=== PATIENT | male | born 1935 | race Caucasian/White ===

== ENCOUNTER 2017-02-02 09:34 | Emergency (ER) | payer OTHER ==
--- NOTE | 2017-02-02 09:40 | EDPHY ---
H & P Time Seen by Provider: 02/02/17 09:39 HPI/ROS: CHIEF COMPLAINT: Shortness of breath or altered mental status HISTORY OF PRESENT ILLNESS: Patient says he feels fine now. He has dementia. EMS as they got toned to his living facility for shortness of breath when they found him he was semi-responsive and drooling at the table. According to the daughter he is transitioning from Flomax to finasteride and currently on both medications, has had previous problems with transient low blood pressure which causes him to be altered. EMS initially had trouble palpating pulses but when they got him some IV fluids and his blood pressure came up his mental status normalized. History and review of systems is however limited by the patient's known dementia. Here he feels fine. REVIEW OF SYSTEMS: Eye: no change in vision ENT: no sore throat Cardiac: no chest pain or syncope Pulmonary: no cough or SOB Abdomen: no vomiting, diarrhea, abdominal pain Musculoskeletal: no back pain or neck pain Skin: no rash Neuro: no headache Constitutional: no fever : no urinary symptoms A comprehensive 10 point review of systems is otherwise negative aside from elements mentioned in the history of present illness. PAST MEDICAL HISTORY: Includes dementia, macular degeneration, enlarged prostate Social history: Daughter and present at 10:00 a.m. General Appearance: Alert and conversant, cooperative. Eyes: No scleral icterus. ENT, Mouth: Normal mucous membranes. No tongue laceration or abrasion. Respiratory: Normal respiratory effort, breath sounds equal, lungs are clear to auscultation. Cardiovascular: Regular rate and rhythm. Gastrointestinal: Abdomen is soft and non tender. Neurological: Alert, fluent speech. Responds appropriately to commands and questions. Normally conversant. Face symmetric, normal movement and sensation in all extremities. Skin: Warm and dry, no rashes. Musculoskeletal: No peripheral edema and no joint swelling. Psychiatric: Not agitated. Emergency Department course/MDM: 1000: discussed with daughter. Patient back to normal mental status. I think the most likely thing is the patient had an episode of transient hypotension leading to altered mental status which now has completely resolved. Family including daughter and state they are comfortable taking him home. Think it is reasonable to not perform any further diagnostics as he is back to baseline. Smoking Status: Former smoker Constitutional: Initial Vital Signs Temperature (C) 36.6 C 02/02/17 09:43 Heart Rate 60 02/02/17 09:43 Respiratory Rate 16 02/02/17 09:43 Blood Pressure 124/73 H 02/02/17 09:43 O2 Sat (%) 97 02/02/17 09:43 O2 Delivery Mode Room Air O2 (L/minute) 2 Allergies/Adverse Reactions: No Known Allergies Allergy (Unverified 11/28/14 10:25) Home Medications: Medication Instructions Recorded Donepezil HCl 02/02/17 Ferrous Sulfate 02/02/17 Preservision Areds Softgel 02/02/17 Proscar 5 MG (*) 02/02/17 Tamsulosin HCl 02/02/17 Vitamin B12 02/02/17 Medical Decision Making - Diagnostics EKG Interpretation: 12-lead EKG interpreted by me; official reading is in trace master. My interpretation is sinus rhythm rate 51 Differential Diagnosis: Differential considered including but not limited to seizure, ischemic stroke, dysrhythmia, metabolic abnormality. - Data Points Laboratory Results: Laboratory Results 02/02/17 09:45 02/02/17 09:45 02/02/17 02/02/17 09:45 09:45 WBC 8.70 10^3/uL 10^3/uL (3.80-9.50) RBC 5.08 10^6/uL 10^6/uL (4.40-6.38) Hgb 16.2 g/dL g/dL (13.7-17.5) Hct 46.5 % % (40.0-51.0) MCV 91.5 fL fL (81.5-99.8) MCH 31.9 pg pg (27.9-34.1) MCHC 34.8 g/dL g/dL (32.4-36.7) RDW 13.0 % % (11.5-15.2) Plt Count 243 10^3/uL 10^3/uL (150-400) MPV 11.5 fL fL (8.7-11.7) Neut % (Auto) 56.8 % % (39.3-74.2) Lymph % (Auto) 31.1 % % (15.0-45.0) Kane % (Auto) 9.8 % % (4.5-13.0) Eos % (Auto) 1.3 % % (0.6-7.6) Baso % (Auto) 0.8 % % (0.3-1.7) Nucleat RBC Rel Count 0.0 % % (0.0-0.2) Absolute Neuts (auto) 4.94 10^3/uL 10^3/uL (1.70-6.50) Absolute Lymphs (auto) 2.71 10^3/uL 10^3/uL (1.00-3.00) Absolute Monos (auto) 0.85 10^3/uL H 10^3/uL (0.30-0.80) Absolute Eos (auto) 0.11 10^3/uL 10^3/uL (0.03-0.40) Absolute Basos (auto) 0.07 10^3/uL 10^3/uL (0.02-0.10) Absolute Nucleated RBC 0.00 10^3/uL 10^3/uL (0-0.01) Immature Gran % 0.2 % % (0.0-1.1) Immature Gran # 0.02 10^3/uL 10^3/uL (0.00-0.10) Sodium 141 mEq/L mEq/L (134-144) Potassium 3.8 mEq/L mEq/L (3.5-5.2) Chloride 104 mEq/L mEq/L (97-110) Carbon Dioxide 22 mEq/l mEq/l (22-31) Anion Gap 15 mEq/L mEq/L (8-16) BUN 16 mg/dL mg/dL (7-23) Creatinine 1.3 mg/dL mg/dL (0.7-1.3) Estimated GFR 53 Glucose 134 mg/dL H mg/dL (70-100) Calcium 9.3 mg/dL mg/dL (8.5-10.4) Medications Given: Discontinued Medications Sodium Chloride (Ns) 500 mls @ 0 mls/hr IV EDNOW ONE; Wide Open PRN Reason: Protocol Stop: 02/02/17 10:48 Last Admin: 02/02/17 11:00 Dose: 500 mls Departure - Departure Disposition: Home, Routine, Self-Care Clinical Impression: Hypotension, resolved Condition: Good Instructions: Hypotension (ED) Additional Instructions: Continue medications as prescribed. Increase oral fluid intake. Referrals: Patient,NotPresent [Unknown] - As per Instructions [facility] ,. [Edm Groups for Call Sched] - As per Instructions
[2017-02-02 09:46] VITALS: RESP 16; TEMP 97.9
[2017-02-02 09:51] LABS: % IMMATURE GRANULYOCYTES 0.2 % (0.0-1.1); ABSOLUTE IMMATURE GRANULOCYTES 0.02 10^3/uL (0.00-0.10); ADD DIFF? NO; ATYPICAL LYMPHOCYTE FLAG 0 (0-99); HEMATOCRIT 46.5 % (40.0-51.0); HEMOGLOBIN 16.2 g/dL (13.7-17.5); LEFT SHIFT FLG 0 (0-99); MEAN CELL HEMOGLOBIN 31.9 pg (27.9-34.1); MEAN CELL HEMOGLOBIN CONCENTR. 34.8 g/dL (32.4-36.7); MEAN CELL VOLUME 91.5 fL (81.5-99.8); MEAN PLATELET VOLUME 11.5 fL (8.7-11.7); PLATELET COUNT 243 10^3/uL (150-400); RED BLOOD CELL COUNT 5.08 10^6/uL (4.40-6.38)
[2017-02-02 09:52] LABS: ADD MORPH? NO; ADD SCAN? NO; FRAGMENT RBC FLAG 10 (0-99); LIPEMIA HEMOLYSIS FLAG 90 (0-99); PLATELET CLUMPS FLAG 0 (0-99)
[2017-02-02 10:13] LABS: ANION GAP 15 mEq/L (8-16); CALCIUM 9.3 mg/dL (8.5-10.4); CARBON DIOXIDE 22 mEq/l (22-31); CHLORIDE 104 mEq/L (97-110); CREATININE 1.3 mg/dL (0.7-1.3); GLOMERULAR FILTRATION RATE 53; GLUCOSE 134 mg/dL (70-100); POTASSIUM 3.8 mEq/L (3.5-5.2); SODIUM 141 mEq/L (134-144)
--- NOTE | 2017-02-02 10:29 | CPEKG ---
Heart Rate: 51 RR Interval: 1176 P-R Interval: 184 QRSD Interval: 98 QT Interval: 452 QTC Interval: 417 P Robinson: 44 QRS Robinson: 29 T Wave Robinson: 77 EKG Severity - NORMAL ECG - EKG Impression: SINUS RHYTHM Electronically Signed By: Socrates Kaur 02-Feb-2017 12:56:48
[2017-02-02] MEDS ORDERED: NS 500 ML IV ONE (10:47)
[2017-02-02 11:54] VITALS: BP 138/98; PULSE 62; O2SAT 98
== END 2017-02-02 12:01 | disposition home or self-care (01) ==
LOC: EDUNIT#
DX: I95.9 Hypotension, unspecified (principal); E86.9 Volume depletion, unspecified; Z87.891 Personal history of nicotine dependence

== ENCOUNTER 2017-03-26 09:37 | Emergency (ER) | payer OTHER ==
[2017-03-26 09:47] VITALS: RESP 18; TEMP 98.1; O2SAT 95
--- NOTE | 2017-03-26 09:50 | CPEKG ---
Heart Rate: 69 RR Interval: 870 P-R Interval: 188 QRSD Interval: 100 QT Interval: 420 QTC Interval: 450 P Renwick: 55 QRS Renwick: 38 T Wave Renwick: 26 EKG Severity - BORDERLINE ECG - EKG Impression: SINUS RHYTHM EKG Impression: BORDERLINE T WAVE ABNORMALITIES Electronically Signed By: Mitch Cota 26-Mar-2017 13:56:06
[2017-03-26] MEDS ORDERED: NS 500 ML IV ONE (09:52)
[2017-03-26 09:58] LABS: PLATELET COUNT 214 10^3/uL (150-400)
--- NOTE | 2017-03-26 10:12 | EDPHY ---
H & P Stated Complaint: syncopal episode after standing Time Seen by Provider: 03/26/17 09:39 - Personal History Current Tetanus/Diphtheria Vaccine: Unsure Current Tetanus Diphtheria and Acellular Pertussis (TDAP): Unsure - Medical/Surgical History Hx Asthma: No Hx Chronic Respiratory Disease: No Hx Diabetes: No Hx Cardiac Disease: No Hx Renal Disease: No Hx Cirrhosis: No Hx Alcoholism: No Hx HIV/AIDS: No Hx Splenectomy or Spleen Trauma: No Other PMH: rt eye macular degen. Dementia, BPH, Hyperlipidemia, Anxiety, - Social History Smoking Status: Former smoker Constitutional: Initial Vital Signs Temperature (C) 36.7 C 03/26/17 09:44 Heart Rate 75 03/26/17 09:44 Respiratory Rate 18 03/26/17 09:44 Blood Pressure 141/85 H 03/26/17 09:44 O2 Sat (%) 95 03/26/17 09:44 O2 Delivery Mode Room Air Allergies/Adverse Reactions: No Known Allergies Allergy (Verified 03/26/17 09:44) Home Medications: Medication Instructions Recorded Donepezil HCl 02/02/17 Ferrous Sulfate 02/02/17 Preservision Areds Softgel 02/02/17 Proscar 5 MG (*) 02/02/17 Tamsulosin HCl 02/02/17 Vitamin B12 02/02/17 Medical Decision Making - Diagnostics Imaging Results: Imaging Impressions Chest X-Ray 03/26/17 09:52 Impression: Negative chest.. Head CT 03/26/17 10:19 Impression: Underlying atrophy and white matter disease, without acute intracranial abnormality identified. Results called to Dr. Mitch Cota at 10:55 AM at the time of the interpretation. Imaging: Discussed imaging studies w/ manager call center Radiologist, I viewed and interpreted images myself ED Course/Re-evaluation: CHIEF COMPLAINT: Syncope HISTORY OF PRESENT ILLNESS: The patient is an 89 y/o male arriving via EMS for evaluation after syncopal episode at breakfast this morning. He has dementia and lives in an assisted memory care facility. He says he woke up feeling normal. He went down to eat breakfast and while standing he lost consciousness and collapsed as witnessed by staff. They deny mechanical cause for collapse and report he was unconscious for about 30 seconds. The patient denies any injuries or complaints, but history is limited by dementia. Daughter arrives and states patient started Seroquel and Sertraline for the first time last night. He has never been on these medications before. REVIEW OF SYSTEMS: A 10 point review of systems was performed and is negative with the exception of the elements mentioned in the history of present illness. PHYSICAL EXAM: HR, BP, O2 Sat, RR. Temp noted General Appearance: Alert, well hydrated, appropriate, and non-toxic appearing. Head: Atraumatic without scalp tenderness or obvious injury Eyes: Pupils equal, round, reactive to light and accommodation, EOMI, no trauma , no injection. Nose: Atraumatic, no rhinorrhea, clear. Throat: Mucus membranes moist. Neck: Supple, non-tender, no lymphadenopathy. Respiratory: No retractions, no distress, no wheezes, and no accessory muscle use. Lungs are clear to auscultation bilaterally. Cardiovascular: Regular rate and rhythm, no murmurs, rubs, or gallops. Good capillary refill all extremities. Gastrointestinal: Abdomen is soft, non-tender, non-distended, no masses, no rebound, no guarding, no peritoneal signs. Musculoskeletal: Normal active ROM of all extremities, atraumatic. Neurological: Alert, appropriate, and interactive. The patient has non-focal cranial nerves, motor, sensory, and cerebellar exam. Skin: No rashes, good turgor, no nodules on palpation. PAST MEDICAL HISTORY: Dementia, macular degeneration, enlarged prostate PAST SURGICAL HISTORY: Noncontributory SOCIAL HISTORY: Lives in assisted living memory care facility. Daughter is MDPOA DIAGNOSTICS/PROCEDURES/CRITICAL CARE TIME: Head CT: negative for acute process Chest x-ray: negative DIFFERENTIAL DIAGNOSIS: The differential diagnosis for the patient's syncope included but was not limited to vasovagal syncope, arrhythmia, dehydration, cardiogenic causes, neurogenic causes, and blood loss. MEDICAL DECISION MAKING: This is a pleasant 81 y/o male with dementia who presents for evaluation following a syncopal episode while standing this morning. He is completely asymptomatic here. Staff did not describe mechanical reason for the fall and his daughter states he started Seroquel and Sertraline last night. He was admitted 2 years ago at [facility] for a similar episode and had an extensive work up that was negative. Plan here for IV, labs, UA, chest x-ray and head CT to rule out acute process. Head CT negative. Chest x-ray negative. Labs normal. UA negative. Reassessed patient and discussed work up with patient's daughter, who is his MDPOA. We had a long discussion regarding different possible causes for syncope and options for further evaluation. Syncope most likely related to new medications. I offered admission, which she has declined. She would prefer to return him home to his assisted care facility and follow up with his PCP as they have already been through inpatient work up for this type of complaint without determining clear cause. He will be discharged home with standard return precautions and follow up instructions. - Data Points Laboratory Results: Laboratory Results 03/26/17 09:40 03/26/17 09:40 03/26/17 03/26/17 09:40 09:40 WBC 6.36 10^3/uL 10^3/uL (3.80-9.50) RBC 5.12 10^6/uL 10^6/uL (4.40-6.38) Hgb 16.6 g/dL g/dL (13.7-17.5) Hct 47.8 % % (40.0-51.0) MCV 93.4 fL fL (81.5-99.8) MCH 32.4 pg pg (27.9-34.1) MCHC 34.7 g/dL g/dL (32.4-36.7) RDW 13.1 % % (11.5-15.2) Plt Count 214 10^3/uL 10^3/uL (150-400) MPV 11.1 fL fL (8.7-11.7) Neut % (Auto) 60.0 % % (39.3-74.2) Lymph % (Auto) 25.6 % % (15.0-45.0) Hyde % (Auto) 11.0 % % (4.5-13.0) Eos % (Auto) 1.7 % % (0.6-7.6) Baso % (Auto) 1.1 % % (0.3-1.7) Nucleat RBC Rel Count 0.0 % % (0.0-0.2) Absolute Neuts (auto) 3.81 10^3/uL 10^3/uL (1.70-6.50) Absolute Lymphs (auto) 1.63 10^3/uL 10^3/uL (1.00-3.00) Absolute Monos (auto) 0.70 10^3/uL 10^3/uL (0.30-0.80) Absolute Eos (auto) 0.11 10^3/uL 10^3/uL (0.03-0.40) Absolute Basos (auto) 0.07 10^3/uL 10^3/uL (0.02-0.10) Absolute Nucleated RBC 0.00 10^3/uL 10^3/uL (0-0.01) Immature Gran % 0.6 % % (0.0-1.1) Immature Gran # 0.04 10^3/uL 10^3/uL (0.00-0.10) Sodium 145 mEq/L mEq/L (135-145) Potassium 3.9 mEq/L mEq/L (3.5-5.2) Chloride 104 mEq/L mEq/L (97-110) Carbon Dioxide 28 mEq/l mEq/l (22-31) Anion Gap 13 mEq/L mEq/L (8-16) BUN 16 mg/dL mg/dL (7-23) Creatinine 1.5 mg/dL H mg/dL (0.7-1.3) Estimated GFR 45 Glucose 110 mg/dL H mg/dL (70-100) Calcium 9.6 mg/dL mg/dL (8.5-10.4) Magnesium 2.0 mg/dL mg/dL (1.6-2.3) Troponin I < 0.012 ng/mL ng/mL (0.000-0.034) NT-Pro-B Natriuret Pep 82 pg/mL pg/mL (0-450) Medications Given: Discontinued Medications Sodium Chloride (Ns) 500 mls @ 1,000 mls/hr IV EDNOW ONE PRN Reason: Protocol Stop: 03/26/17 10:21 Last Admin: 03/26/17 09:59 Dose: 500 mls Departure - Departure Disposition: Home, Routine, Self-Care Clinical Impression: Syncope Qualifiers: Syncope type: unspecified Qualified Code(s): R55 - Syncope and collapse Medication side effect Qualifiers: Encounter type: initial encounter Qualified Code(s): T88.7XXA - Unspecified adverse effect of drug or medicament, initial encounter Condition: Good Instructions: Syncope (ED) Additional Instructions: Follow up with primary care provider as needed for unimproved symptoms. Return for worsening of condition. Referrals: Kavya Flores MD [[facility] [place] Primary Care Provider] - As per Instructions Report Scribed for: Mitch Cota Report Scribed by: Giuila Lal Date of Report: 03/26/17 Time of Report: 09:50
[2017-03-26 11:32] VITALS: BP 132/76; PULSE 72
== END 2017-03-26 11:46 | disposition home or self-care (01) ==
LOC: EDUNIT#
DX: R55 Syncope and collapse (principal); E86.9 Volume depletion, unspecified; T50.905A Adverse effect of unspecified drugs, medicaments and biological substances, initial encounter; Z87.891 Personal history of nicotine dependence